=== PATIENT | female | born 1975 | race African-American/Black ===

== ENCOUNTER 2016-06-15 18:27 | Emergency (ER) | payer MEDICAID | END 2016-06-15 20:01 | disposition home or self-care (01) | LOC: D.ER 18:27 | DX: J45.901 Unspecified asthma with (acute) exacerbation (principal) ==

== ENCOUNTER 2016-06-17 09:37 | Emergency (ER) | payer MEDICAID ==
[2016-06-17 10:58] LABS: BASOPHILS 0 % (0.0-2.0); EOSINOPHILS 0 % (0-7); HEMATOCRIT 39.1 % (36.0-48.0); HEMOGLOBIN 12.3 g/dL (12-16); IMMATURE GRANULOCYTES 0.5 % (0-5); LYMPHOCYTES 8.1 % (15-50); MCH 29.1 pg (26.0-34.0); MCHC 31.5 g/dL (31.0-37.0); MCV 92.7 fL (80.0-100.0); MEAN PLATELET VOLUME 10.3 fL (7.4-10.4); MONOCYTES 5.7 % (2-11); NEUTROPHILS 85.7 % (40-80); PLATELET COUNT 240 10x3/uL (130-400); RBC 4.22 10x6/uL (4.00-5.40); RDW 13.6 % (11.5-14.5); WBC 18.2 10x3/uL (4.8-10.8)
[2016-06-17 11:09] LABS: ALBUMIN 3.9 g/dL (3.4-5.0); ALKALINE PHOSPHATASE 61 U/L (46-116); ALT (SGPT) 30 U/L (10-68); BILIRUBIN - TOTAL 0.43 mg/dL (0.2-1.3); CALC OSMOLALITY 279 mosm/kg (275-300); CALCIUM 9.1 mg/dL (8.5-10.1); CARBON DIOXIDE 25.5 mmol/L (21.0-32.0); CHLORIDE - SERUM 105 mmol/L (98-107); GLUCOSE 120 mg/dL (74-106); POTASSIUM - SERUM 4.1 mmol/L (3.5-5.1); PROTEIN - SERUM 7.8 g/dL (6.4-8.2); SODIUM 140 mmol/L (136-145); UREA NITROGEN 13 mg/dL (7-18); eGFR NON AFRICAN AMERICAN 65 mL/min (90-120)
[2016-06-17 11:13] LABS: CREATINE KINASE 107 UL (21-215)
[2016-06-17 11:18] LABS: TROPONIN-I < 0.017 ng/mL (0.000-0.060)
[2016-06-17 12:40] LABS: APPEARANCE HAZY (CLEAR); BACTERIA MODERATE /hpf (NONE SEEN); BILIRUBIN NEGATIVE (NEGATIVE); COLOR YELLOW (YELLOW); EPITHELIAL CELLS 0-5 /hpf (0-5); GLUCOSE NEGATIVE (NEGATIVE); KETONE NEGATIVE (NEGATIVE); LEUKOCYTE ESTERASE TRACE (NEGATIVE); NITRITE NEGATIVE (NEGATIVE); PROTEIN NEGATIVE (NEGATIVE); SPECIFIC GRAVITY 1.025 (1.005-1.020); UROBILINOGEN NORMAL (NORMAL); WHITE CELLS - URINE 0-5 /hpf (0-5)
[2016-06-17 12:41] LABS: MUCUS <1+ /lpf (NONE SEEN)
== END 2016-06-17 13:35 | disposition home or self-care (01) ==
LOC: D.ER 09:37
PROVIDERS: Nurse Practitioner Family
DX: J45.901 Unspecified asthma with (acute) exacerbation (principal); J44.9 Chronic obstructive pulmonary disease, unspecified; I10 Essential (primary) hypertension

== ENCOUNTER → 2016-09-15 19:31 | Outpatient (CLI) | payer MEDICAID | END | disposition home or self-care (01) | LOC: D.SLEEP 19:31 | DX: G47.30 Sleep apnea, unspecified (principal) ==

== ENCOUNTER → 2016-10-13 19:29 | Outpatient (CLI) | payer MEDICAID | END | disposition home or self-care (01) | LOC: D.SLEEP 19:29 | DX: G47.30 Sleep apnea, unspecified (principal) ==

== ENCOUNTER 2016-11-07 19:16 | Emergency (ER) | payer MEDICAID | END 2016-11-07 21:05 | disposition home or self-care (01) | LOC: D.ER 19:16 | DX: J20.9 Acute bronchitis, unspecified (principal); J45.901 Unspecified asthma with (acute) exacerbation; Z87.891 Personal history of nicotine dependence ==

== ENCOUNTER → 2017-05-14 08:33 | Outpatient (CLI) | payer MEDICAID ==
[2017-05-14 10:09] LABS: BASOPHILS 0.4 % (0-2); EOSINOPHILS 2.6 % (0-7); IMMATURE GRANULOCYTES 0.2 % (0-5); LYMPHOCYTES 42.9 % (15-50); MCH 29.3 pg (26.0-34.0); MCHC 31.6 g/dL (31.0-37.0); MCV 92.9 fL (80.0-100.0); MEAN PLATELET VOLUME 9.9 fL (7.4-10.4); NEUTROPHILS 44.9 % (40-80); PLATELET COUNT 248 10x3/uL (130-400); RBC 4.09 10x6/uL (4.00-5.40); RDW 13.9 % (11.5-14.5); WBC 4.7 10x3/uL (4.8-10.8)
[2017-05-15 06:14] LABS: IMMUNOGLOBULIN A 239 mg/dL (87-352); IMMUNOGLOBULIN G 1165 mg/dL (700-1600)
[2017-05-15 08:18] LABS: IMMUNOGLOBULIN E 93 IU/mL (0-100)
== END | disposition home or self-care (01) ==
LOC: D.RT 08:00
PROVIDERS: Internal Medicine Pulmonary Disease
DX: J45.909 Unspecified asthma, uncomplicated (principal)